=== PATIENT | female | born 1950 | race Caucasian/White ===

== ENCOUNTER 2023-05-11 10:01 | Outpatient (CLI) | payer MEDICARE ==
[2023-05-11] MEDS ORDERED: barium sulfate 450ml oral suspension ONE (12:00)
== END 2023-05-11 23:59 | disposition home or self-care (01) ==
LOC: RAD 10:01
PROVIDERS: ATTEND Internal Medicine Gastroenterology
DX: R13.10 Dysphagia, unspecified (principal); K57.30 Diverticulosis of large intestine without perforation or abscess without bleeding
CPT/HCPCS: 74220